=== PATIENT | female | born 1960 | race Caucasian/White ===

== ENCOUNTER → 2016-10-02 | Outpatient (CLI) | payer BC, OTHER ==
[2016-10-02 13:44] LABS: BLOOD UREA NITROGEN 28 mg/dl (7-18); BUN/CREATININE RATIO 25.5 (10-20); CALCIUM 9.8 mg/dl (8.5-10.1); CARBON DIOXIDE 29 mmol/L (21-32); CHLORIDE 101 mmol/L (98-107); GLUCOSE 96 mg/dl (70-99); POTASSIUM 4.4 mmol/L (3.5-5.1); SODIUM 138 mmol/L (136-145)
[2016-10-02 14:05] LABS: ESTIMATED AVERAGE GLUCOSE 114 mg/dl; HA1C FLAG Normal (Normal)
[2016-10-02 14:35] LABS: THYROID STIMULATING HORMONE 2.58 uIu/ml (0.300-4.500)
== END | disposition home or self-care (01) ==
LOC: C.LABMFLN 09:31
PROVIDERS: ATTEND Family Medicine
DX: Z01.818 Encounter for other preprocedural examination (principal); I10 Essential (primary) hypertension; I21.3 ST elevation (STEMI) myocardial infarction of unspecified site; E55.9 Vitamin D deficiency, unspecified; E66.01 Morbid (severe) obesity due to excess calories; K21.9 Gastro-esophageal reflux disease without esophagitis

== ENCOUNTER → 2016-10-06 | Outpatient (CLI) | payer BC ==
[~2016-10-06] MED LIST: PERFLUTREN LIPID MICROSPHERE (DEFINITY) IV ONE
--- NOTE | 2016-10-06 11:54 | DIAGNOSTIC IMAGING REPORT ---
GI SERIES W/AIR ROUTINE CLINICAL HISTORY: Preoperative evaluation. COMPARISON STUDY: None FLUOROSCOPY TIME: 2.2 minutes. FINDINGS: 28 fluoroscopic images were obtained. These images demonstrate moderate to severe esophageal dysmotility. No esophageal mass or stricture was identified. No hiatal hernia was identified. There is mild gastroesophageal reflux. No gastric abnormality was identified by fluoroscopy. Duodenum was normal. Caliber of visualized jejunum was normal. IMPRESSION: 1. Moderate to severe esophageal dysmotility. 2. No hiatal hernia identified. 3. Mild gastroesophageal reflux. Electronically signed by: Lavon Damon M.D. 10/06/2016 11:52 AM Dictated Date/Time: 10/06/2016 11:51 AM
--- NOTE | 2016-10-06 14:56 | EXERCISE STRESS ECHO ---
*NOTICE TO RECEIVING [employer] This information is strictly Confidential and protected under [place] law. [place] law prohibits you from making any further disclosure of this information unless further disclosure is expressly permitted by the written consent of the person to whom it pertains or is authorized by law. A general authorization for the release of medical or other information is not sufficient for this purpose. Hospital accepts no responsibility if the information is made available to any other person, INCLUDING THE PATIENT. Interpretation Summary * Name: PATRICK CUEVAS Study Date: 10/06/2016 09:31 AM BP: 107/67 mmHg * Patient Location: [facility] HR: 96 * : 1960 (M/d/yyyy) Gender: Female Height: 60 in * Age: 55 yrs Ethnicity: [place] Weight: 205 lb * Ordering Physician: Nicolas Enamorado * Performed By: Dedra Brewer RDCS * * Reason For Study: Abnormal EKG, pre-op * BSA: 1.9 m2 * -- Conclusions -- * 1. Negative exercise stress echo for ischemia at >100% MPHR. * 2. Negative exercise stress ECG for ischemia. No exercise induced arrhythmias. * 3. Normal functional capacity. Exercised 6:38 min, achieving 7.9 METS. No exercise induced chest pain. * 4. Normal resting LV size and function. Normal RV size and function. No significant valvular pathology. Grade I diastolic dysfunction. * 5. No prior studies for comparison. Procedure Details * ECHOEX, CPT #55127 * ECHO DOPPLER, CPT #[id number] * ECHO COLOR FLOW, CPT #58907 * A contrast injection of Definity was performed to improve assessment of LV function. * Contrast was injected into an intravenous site in the right arm. * One vial of Definity ultrasound contrast was diluted in normal saline to a total volume of 10 ml. A total of '5' ml of solution was administered during imaging. * Lot # [id number] of Definity utilized for procedure. * Expiration date MAR 03. * The attending nurse who injected the contrast agent was Anh James RN. Left Ventricular Findings with Stress * This was essentially a normal study. Left Ventricle * The left ventricular cavity is small. * There is normal left ventricular wall thickness. * Ejection Fraction = 65-70%. * The left ventricular ejection fraction increases normally with stress. The left ventricular end-systolic cavity size reduces post-stress (normal response). The left ventricular wall motion with stress is normal. * No regional wall motion abnormalities noted. Right Ventricle * The right ventricle is grossly normal size. * The right ventricular systolic function is normal as assessed by tricuspid annular plane systolic excursion (TAPSE) (normal >1.5 cm). Atria * The left atrium is borderline dilated. * Right atrial size is normal. * No ASD detected; PFO is not assessed. Mitral Valve * The mitral valve is grossly normal. * There is no mitral valve stenosis. * Significant mitral regurgitation is absent. Tricuspid Valve * The tricuspid valve is not well visualized. * There is trace tricuspid regurgitation. Aortic Valve * The aortic valve opens well. * No hemodynamically significant valvular aortic stenosis. * There is no significant aortic regurgitation. Pulmonic Valve * The pulmonary valve is inadequately visualized, but the Doppler data is adequate for interpretation. * There is no pulmonic valvular regurgitation. Great Vessels * The aortic root and proximal ascending aorta are normal sized. Pericardium * There is no pericardial effusion. Stress Parameters * Sinus rhtyhm, incomplete RBBB, left axis deviation, poor R wave progression, cant rule out inferior infarct. No ST abnormalities. * Stress ECG: No ST changes. No arrhythmias. * No arrhythmia were noted with stress. * The stress portion of this study was personally supervised by the undersigned interpreting physician. * Rest heart rate was '96' BPM. * Rest blood pressure was '107/67' * Maximum heart rate achieved was 179 bpm. * Maximum heart rate was 107 % of maximum age-predicted heart rate. * Maximum blood pressure was '133/72' * Total exercise time was '06:38' * Maximum exercise MET level achieved was '7.90' METS * Maximum treadmill speed was '3.40' miles per hour. * Maximum treadmill elevation was '14.00'% grade. * Exercise was terminated due to 'achieving target heart rate' Left Ventricular Findings with Stress * The study was technically adequate. Left Ventricular Diastolic Function * Grade I diastolic dysfunction, (abnormal relaxation pattern). MMode 2D Measurements and Calculations IVSd 0.92 cm LVIDd 3.2 cm LVIDs 2.1 cm LVPWd 1.0 cm IVS/LVPW 0.91 FS 36.2 % EDV(Teich) 41.6 ml ESV(Teich) 13.6 ml EF(Teich) 67.2 % EDV(cubed) 33.4 ml ESV(cubed) 8.7 ml EF(cubed) 74.0 % LV mass(C)d 86.1 grams LV mass(C)dI 45.6 grams/m\S\2 SV(Teich) 27.9 ml SI(Teich) 14.8 ml/m\S\2 SV(cubed) 24.7 ml SI(cubed) 13.1 ml/m\S\2 Ao root diam 2.9 cm Ao root area 6.5 cm\S\2 ACS 2.1 cm LA dimension 3.3 cm asc Aorta Diam 2.9 cm LA/Ao 1.1 LVOT diam 1.9 cm LVOT area 2.9 cm\S\2 LVAd ap4 22.0 cm\S\2 LVLd ap4 7.3 cm EDV(MOD-sp4) 53.6 ml EDV(sp4-el) 56.3 ml LVAs ap4 10.9 cm\S\2 LVLs ap4 5.5 cm ESV(MOD-sp4) 17.3 ml ESV(sp4-el) 18.2 ml EF(MOD-sp4) 67.6 % EF(sp4-el) 67.7 % LVAd ap2 14.9 cm\S\2 LVLd ap2 6.8 cm EDV(MOD-sp2) 26.4 ml EDV(sp2-el) 27.6 ml LVAs ap2 7.8 cm\S\2 LVLs ap2 5.5 cm ESV(MOD-sp2) 9.2 ml ESV(sp2-el) 9.3 ml EF(MOD-sp2) 65.3 % EF(sp2-el) 66.3 % LVLd %diff -7.02 % EDV(MOD-bp) 38.3 ml LVLs %diff 0.08 % ESV(MOD-bp) 12.6 ml EF(MOD-bp) 67.1 % SV(MOD-sp4) 36.2 ml SI(MOD-sp4) 19.2 ml/m\S\2 SV(MOD-sp2) 17.3 ml SI(MOD-sp2) 9.2 ml/m\S\2 SV(MOD-bp) 25.7 ml SI(MOD-bp) 13.6 ml/m\S\2 SV(sp4-el) 38.1 ml SI(sp4-el) 20.2 ml/m\S\2 SV(sp2-el) 18.3 ml SI(sp2-el) 9.7 ml/m\S\2 Doppler Measurements and Calculations MV E max lexie 73.7 cm/sec MV A max lexie 99.0 cm/sec MV E/A 0.75 MV dec time 0.11 sec Ao V2 max 107.4 cm/sec Ao max PG 4.6 mmHg Ao max PG (full) 0.18 mmHg HONEY(V,A) 2.9 cm\S\2 HONEY(V,D) 2.9 cm\S\2 LV V1 max PG 4.4 mmHg LV V1 max 105.3 cm/sec PA V2 max 118.1 cm/sec PA max PG 5.6 mmHg PA acc slope 808.2 cm/sec\S\2 PA acc time 0.11 sec TR max lexie 91.7 cm/sec PA pr(Accel) 31.5 mmHg
== END | disposition home or self-care (01) ==
LOC: C.CPL 08:46
PROVIDERS: ATTEND Family Medicine
DX: Z01.810 Encounter for preprocedural cardiovascular examination (principal); Z01.818 Encounter for other preprocedural examination; R94.31 Abnormal electrocardiogram [ECG] [EKG]; I21.3 ST elevation (STEMI) myocardial infarction of unspecified site; I10 Essential (primary) hypertension; R06.83 Snoring; K22.4 Dyskinesia of esophagus; K21.9 Gastro-esophageal reflux disease without esophagitis; E66.01 Morbid (severe) obesity due to excess calories